=== PATIENT | male | born 1990 | race Caucasian/White ===

== ENCOUNTER 2017-03-01 14:52 | Emergency (ER) | payer SELFPAY ==
[2017-03-01] MEDS ORDERED: LACTATED RINGERS 1,000 ML IVS ONE (14:55)
[2017-03-01 15:02] VITALS: TEMP 99.2
--- NOTE | 2017-03-01 15:38 | RAD ---
EXAM DESCRIPTION: Chest,1 View CLINICAL HISTORY: 26 years Male, tachypnea COMPARISON: February 19, 2015 TECHNIQUE: AP portable chest. FINDINGS: Fair expansion of the lungs is evident without consolidation, layering effusion, or large mass. Heart size and vascularity appear normal for AP technique and degree of inspiration. No gross bony, hilar, or mediastinal abnormalities are noted. IMPRESSION: Normal chest, one view Electronically signed by: López Hancock MD 03/01/2017 3:36 PM CDT
--- NOTE | 2017-03-01 15:51 | ED.PDOC ---
History of Present Illness - General Chief Complaint: Syncope/Near Syncope Stated Complaint: hyperventilated and passed out Time Seen by Provider: 03/01/17 14:53 Source: patient, EMS notes reviewed, family Exam Limitations: no limitations - History of Present Illness Initial Comments: Nam Espitia 26 y/o male stated he just split up with his live in girlfriend of three years 5 days ago and stating having emotional problems-feels depressed and today wanting to harm himself.Stated he and her former girlfriend had a 3 year old child and had seen her with another man dining together while he was not invited.Went home got upset hyperventilated and passed out. Timing/Duration: 1-3 hours Severity: moderate Improving Factors: nothing Worsening Factors: nothing Associated Symptoms: denies symptoms Allergies/Adverse Reactions: Allergies NO KNOWN ALLERGY Allergy (Verified 07/20/15 16:59) Home Medications: Ambulatory Orders NK [NK] 03/01/17 Review of Systems - Review of Systems Constitutional: States: no symptoms reported EENTM: States: no symptoms reported Respiratory: States: no symptoms reported Cardiology: States: no symptoms reported Gastrointestinal/Abdominal: States: no symptoms reported Genitourinary: States: no symptoms reported Musculoskeletal: States: no symptoms reported Skin: States: no symptoms reported Neurological: States: emotional problems Endocrine: States: no symptoms reported Past Medical History (General) - Patient Medical History Hx Seizures: No Hx Stroke: No Hx Dementia: No Hx Asthma: No Hx of COPD: No Hx Cardiac Disorders: No Hx Congestive Heart Failure: No Hx Pacemaker: No Hx Hypertension: No Hx Thyroid Disease: No Hx Diabetes: No Hx Gastroesophageal Reflux: No Hx Renal Disease: No Hx Cancer: No Hx of HIV: No Hx Hepatitis C: No Hx MRSA: No Surgical History: no surgical history - Vaccination History Hx Tetanus, Diphtheria Vaccination: No Hx Influenza Vaccination: No Hx Pneumococcal Vaccination: No - Social History Hx Tobacco Use: No Hx Chewing Tobacco Use: Yes Hx Alcohol Use: Yes - 2x per week Hx Substance Use: Yes - marijuana Hx Substance Use Treatment: No Hx Depression: No Hx Physical Abuse: No Hx Emotional Abuse: No Hx Suspected Abuse: No - Female History Patient : No Family Medical History - Family History Mother Living Status: Still Living Hx Family Congestive Heart Failure: No Hx Family Stroke: No Hx Cardiac Disease: No Physical Exam - Physical Exam General Appearance: Alert, Anxious, No apparent distress Eye Exam: bilateral normal Ears, Nose, Throat: hearing grossly normal, normal ENT inspection, normal pharynx Neck: non-tender, full range of motion Respiratory: chest non-tender, lungs clear Cardiovascular/Chest: normal peripheral pulses, regular rate, rhythm, no murmur Peripheral Pulses: radial,right: 2+ Gastrointestinal/Abdominal: normal bowel sounds, non tender, soft Back Exam: normal inspection, no CVA tenderness Extremity: normal range of motion, non-tender, no calf tenderness Neurologic: no motor/sensory deficits, alert, depressed affect, other - mentioned wants to harm himself after incident Skin Exam: normal color Lymphatic: no adenopathy Progress - Progress Progress: 03/01/17 16:42 Vital Signs - 8 hr 03/01/17 14:57 Temperature 99.2 F Pulse Rate [ 106 H Left Brachial] Respiratory 20 Rate Blood Pressure 149/76 [Left Arm] O2 Sat by Pulse 98 Oximetry Laboratory Tests 03/01/17 15:07 WBC 6.1 RBC 4.86 Hgb 15.4 Hct 45.0 MCV 92.7 MCH 31.8 H MCHC 34.3 RDW 12.3 Plt Count 221 MPV 7.7 Absolute Neuts (auto) 5.10 Absolute Lymphs (auto) 0.60 L Absolute Monos (auto) 0.30 Absolute Eos (auto) 0.00 Absolute Basos (auto) 0.00 Neutrophils % 83.7 H Lymphocytes % 10.1 L Monocytes % 5.7 Eosinophils % 0.1 L Basophils % 0.4 PT 12.6 H INR 1.120 PTT (SP) 36.5 Sodium 139 Potassium 3.5 L Chloride 104 Carbon Dioxide 24 Anion Gap 14.5 BUN 7 Creatinine 0.99 BUN/Creatinine Ratio 7.1 L Random Glucose 114 H Serum Osmolality 276.4 Calcium 9.6 Magnesium 1.8 Total Bilirubin 1.2 H Direct Bilirubin 0.2 Indirect Bilirubin 1.0 H AST 18 ALT 34 Alkaline Phosphatase 37 L Creatine Kinase 77 CK-MB (CK-2) 1.8 CK-MB (CK-2) % Not Reportable Troponin I < 0.02 Serum Total Protein 7.2 Albumin 4.7 03/01/17 18:00 [facility] PERSONNEL CAME TO EVALUATE PATIENT - EKG/XRAY/CT EKG: Sinus, Tachy Comments: heart rate-103 XRAY: chest - no acute findings Departure - Departure Clinical Impression: Fainting spell, Anxiety hyperventilation, Situational depression, Suicidal ideations Time of Disposition: 17:58 Disposition: Discharge to Home or Self Care Condition: Fair Departure Forms: ED Discharge - Pt. Copy, Patient Portal Self Enrollment Home Medications: Ambulatory Orders NK [NK] 03/01/17 Additional Instructions: KEEP APPOINTMENT WITH [facility] 03/04/2017
[2017-03-01 18:13] VITALS: BP 143/77; O2SAT 98
== END 2017-03-01 18:13 | disposition home or self-care (01) ==
LOC: ER 14:52
DX: R55 Syncope and collapse (principal); R06.4 Hyperventilation; F43.21 Adjustment disorder with depressed mood; R45.851 Suicidal ideations; F17.220 Nicotine dependence, chewing tobacco, uncomplicated
CPT/HCPCS: 36415; 71010; 80048; 80076; 82550; 82553; 84484; 85025; 85610; 85730; 93005; J7120

== ENCOUNTER 2017-09-05 16:27 | Emergency (ER) | payer SELFPAY ==
[2017-09-05] MEDS ORDERED: LIDOCAINE 2% W/ EPINEPHRINE 20 ML VIAL INJ ONE (16:39)
[2017-09-05] MEDS ORDERED: IODOFORM 1INCH 1 EA BTTL TOP ONE (16:47)
[2017-09-05 16:57] VITALS: BP 144/85; TEMP 100.1; O2SAT 99
[2017-09-05] MEDS ORDERED: SULFA/TRIMETH 800/160 (DS) TAB 1 EA TAB PO ONE (16:59)
--- NOTE | 2017-09-05 17:03 | ED.PDOC ---
History of Present Illness - General Chief Complaint: Skin/Abrasion/Tear Stated Complaint: abscess Time Seen by Provider: 09/05/17 16:35 Source: patient Exam Limitations: no limitations - History of Present Illness Initial Comments: the patient is a 26-year-old male presenting to the emergency room secondary to abscess formation on the left side of the mons pubis. It is been present and progressive for the last 3 or 4 days. He does have a low-grade fever. No other areas of obvious infection. No previous abscesses. Timing/Duration: unsure Severity: moderate Improving Factors: nothing Worsening Factors: nothing Associated Symptoms: denies symptoms Allergies/Adverse Reactions: Allergies NO KNOWN ALLERGY Allergy (Verified 07/20/15 16:59) Home Medications: Ambulatory Orders Sulfa/Trimeth 800/160 (Ds) Tab [Bactrim DS Tab] 1 ea PO BID #14 tab 09/05/17 Review of Systems - Review of Systems Constitutional: States: fever, malaise EENTM: States: no symptoms reported Respiratory: States: no symptoms reported Cardiology: States: no symptoms reported Gastrointestinal/Abdominal: States: no symptoms reported Genitourinary: States: no symptoms reported Musculoskeletal: States: no symptoms reported Skin: States: see HPI Neurological: States: no symptoms reported Endocrine: States: no symptoms reported All other Systems: No Change from Baseline Past Medical History (General) - Patient Medical History Hx Seizures: No Hx Stroke: No Hx Dementia: No Hx Asthma: No Hx of COPD: No Hx Cardiac Disorders: No Hx Congestive Heart Failure: No Hx Pacemaker: No Hx Hypertension: No Hx Thyroid Disease: No Hx Diabetes: No Hx Gastroesophageal Reflux: No Hx Renal Disease: No Hx Cancer: No Hx of HIV: No Hx Hepatitis C: No Hx MRSA: No Surgical History: no surgical history - Vaccination History Hx Tetanus, Diphtheria Vaccination: No Hx Influenza Vaccination: No Hx Pneumococcal Vaccination: No - Social History Hx Tobacco Use: No Hx Chewing Tobacco Use: Yes Hx Alcohol Use: Yes - 2x per week Hx Substance Use: Yes - marijuana Hx Substance Use Treatment: No Hx Depression: No Hx Physical Abuse: No Hx Emotional Abuse: No Hx Suspected Abuse: No - Female History Patient : No Family Medical History - Family History Mother Living Status: Still Living Hx Family Congestive Heart Failure: No Hx Family Stroke: No Hx Cardiac Disease: No Physical Exam - Physical Exam General Appearance: Alert, Comfortable, No apparent distress Eye Exam: bilateral normal Ears, Nose, Throat: hearing grossly normal, normal pharynx Neck: full range of motion, supple Respiratory: no respiratory distress, no accessory muscle use Cardiovascular/Chest: normal peripheral pulses, no edema Peripheral Pulses: radial,right: 2+, radial,left: 2+ Gastrointestinal/Abdominal: non tender, soft Rectal Exam: other - abscess of the left side of the mons pubis Back Exam: normal inspection, no CVA tenderness Extremity: normal range of motion, non-tender, normal inspection, no pedal edema , normal capillary refill 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 Risk and benefits of I&D were explained and the patient agrees to proceed. Lidocaine with epinephrine was used 2 cc for local anesthetic and a #15 blade scalpel was used for excision of a 1 cm length for drainage. Wound was explored with a cotton-tip swab that was sterile. Approximately 10 cc of pus was obtained and iodoform gauze was used for packing. The patient can pack this daily until it heals up from the inside out. He needs to wash it daily with antibacterial soap and water. He'll be placed on Bactrim twice daily for the next 7 days. He needs to take this medication with food. A wound culture is being performed. He should follow-up with his primary care doctor early next week. ER warnings were given for any worsening. Departure - Departure Clinical Impression: Abscess of skin Qualifiers: Site of cutaneous abscess: trunk Site of cutaneous abscess of trunk: perineum Qualified Code(s): L02.215 - Cutaneous abscess of perineum Disposition: Discharge to Home or Self Care Condition: Fair Departure Forms: ED Discharge - Pt. Copy, Patient Portal Self Enrollment Instructions: DI for Incision and Drainage of a Skin Abscess Diet: regular diet Activity: increase activity as tolerated Prescriptions: Sulfa/Trimeth 800/160 (Ds) Tab [Bactrim DS Tab] 1 ea PO BID #14 tab Home Medications: Ambulatory Orders Sulfa/Trimeth 800/160 (Ds) Tab [Bactrim DS Tab] 1 ea PO BID #14 tab 09/05/17 Additional Instructions: the patient's 26-year-old male presenting to the emergency room secondary to an abscess to the left side of the mons pubis. Risk and benefits of I&D were explained and the patient agrees to proceed. Lidocaine with epinephrine was used 2 cc for local anesthetic and a #15 blade scalpel was used for excision of a 1 cm length for drainage. Wound was explored with a cotton-tip swab that was sterile. Approximately 10 cc of pus was obtained and iodoform gauze was used for packing. The patient can pack this daily until it heals up from the inside out. He needs to wash it daily with antibacterial soap and water. He'll be placed on Bactrim twice daily for the next 7 days. He needs to take this medication with food. A wound culture is being performed. He should follow-up with his primary care doctor early next week. ER warnings were given for any worsening.
== END 2017-09-05 17:30 | disposition home or self-care (01) ==
LOC: ER 16:27
DX: L02.215 Cutaneous abscess of perineum (principal)

== ENCOUNTER 2018-01-07 17:41 | Emergency (ER) | payer SELFPAY ==
[2018-01-07] MEDS ORDERED: ONDANSETRON INJ 4 MG/2 ML VIAL IV ONE (18:09)
[2018-01-07] MEDS ORDERED: SODIUM CHLORIDE 0.9% 1000ML 1,000 ML IVS PRN (18:09)
--- NOTE | 2018-01-07 18:24 | ED.PDOC ---
History of Present Illness - General Chief Complaint: GI Problem Stated Complaint: vomiting and diarrhea Time Seen by Provider: 01/07/18 18:07 Information Source: patient - History of Present Illness Initial Comments: STARTED AT 0800 HRS TODAY MULTIPLE EPISODES OF VOMITING AND DIARRHEA ASSOCIATED WITH ABDOMINAL CRAMPS. THEY HAVE A DAUGHTER THAT RECENTLY HAD GASTROENTERITIS. DENIES ANY FEVER. Abdominal Pain Onset Location: generalized abdomen Pain Radiation: no radiation Quality: mild, cramping, intermittent Improving Factors: nothing Worsening Factors: nothing Associated Symptoms: diarrhea, fatigue, nausea/vomiting, weakness Review of Systems - Review of Systems Constitutional: States: no symptoms reported EENTM: States: no symptoms reported Respiratory: States: no symptoms reported Cardiology: States: no symptoms reported Gastrointestinal/Abdominal: States: abdominal pain, diarrhea, nausea, vomiting Genitourinary: States: no symptoms reported Musculoskeletal: States: no symptoms reported Skin: States: no symptoms reported Neurological: States: no symptoms reported Endocrine: States: no symptoms reported Hematologic/Lymphatic: States: no symptoms reported Past Medical History (General) - Patient Medical History Hx Seizures: No Hx Stroke: No Hx Dementia: No Hx Asthma: No Hx of COPD: No Hx Cardiac Disorders: No Hx Congestive Heart Failure: No Hx Pacemaker: No Hx Hypertension: No Hx Thyroid Disease: No Hx Diabetes: No Hx Gastroesophageal Reflux: No Hx Renal Disease: No Hx Cancer: No Hx of HIV: No Hx Hepatitis C: No Hx MRSA: No Surgical History: no surgical history - Vaccination History Hx Tetanus, Diphtheria Vaccination: No Hx Influenza Vaccination: No Hx Pneumococcal Vaccination: No - Social History Hx Tobacco Use: No Hx Chewing Tobacco Use: Yes Hx Alcohol Use: No Hx Substance Use: No Hx Substance Use Treatment: No Hx Depression: No Hx Physical Abuse: No Hx Emotional Abuse: No Hx Suspected Abuse: No - Female History Patient : No Family Medical History - Family History Mother Living Status: Still Living Hx Family Congestive Heart Failure: No Hx Family Stroke: No Hx Cardiac Disease: No Physical Exam - Physical Exam General Appearance: Alert, No apparent distress, Well Developed, Well Groomed, Well Hydrated, Well Nourished Eyes, Ears, Nose, Throat Exam: PERRL/EOMI, normal ENT inspection Neck: non-tender, full range of motion, supple Respiratory: chest non-tender, lungs clear, normal breath sounds Cardiovascular/Chest: normal peripheral pulses, regular rate, rhythm, no edema, no gallop Gastrointestinal/Abdominal: normal bowel sounds, non tender, soft, no organomegaly, no pulsatile mass Rectal Exam: deferred Back Exam: normal inspection Extremity: normal range of motion Neurologic: no motor/sensory deficits, alert, oriented x 3 Skin Exam: normal color Lymphatic: no adenopathy Progress - Results/Orders Results/Orders: THE TRANSAMINASES WERE SLIGHTLY ELEVATED. THE PATIENT FEELS MUCH BETTER. HE HAS NO FAMILY DOCTOR BUT I AM REQUESTING HE FOLLOW WITH A PCP AND HAVE HIS LIVER ENZYMES RECHECKED. Departure - Departure Clinical Impression: Gastroenteritis Time of Disposition: 19:39 Disposition: Discharge to Home or Self Care Condition: Good Departure Forms: ED Discharge - Pt. Copy, Patient Portal Self Enrollment Instructions: Viral Gastroenteritis Diet: full liquid diet Prescriptions: Ondansetron [Zofran Odt] 4 mg PO Q6HRS #6 tab Home Medications: Ambulatory Orders Sulfa/Trimeth 800/160 (Ds) Tab [Bactrim DS Tab] 1 ea PO BID #14 tab 09/05/17 Ondansetron [Zofran Odt] 4 mg PO Q6HRS #6 tab 01/07/18
[2018-01-07] MEDS ORDERED: DICYCLOMINE HCL INJ 20 MG/2 ML AMP IM ONE (18:25)
[2018-01-07 19:34] VITALS: BP 126/61; O2SAT 98
[2018-01-07 19:56] VITALS: TEMP 99.7
== END 2018-01-07 19:55 | disposition home or self-care (01) ==
LOC: ER 17:41
DX: K52.9 Noninfective gastroenteritis and colitis, unspecified (principal); Z87.891 Personal history of nicotine dependence
CPT/HCPCS: 80053; 81001; 85025; J0500; J2405; J7030

== ENCOUNTER 2019-01-19 21:31 | Emergency (ER) | payer SELFPAY ==
--- NOTE | 2019-01-19 21:56 | ED.PDOC ---
History of Present Illness - General Chief Complaint: GI Problem Stated Complaint: Nause, vomiting with headache Time Seen by Provider: 01/19/19 21:53 Source: patient Exam Limitations: no limitations Additional Information: 28 YEAR OLD PRESENTS WITH HEADACHE FEVER VOMITING AND SOME LOOSE STOOLS SINCE 4 AM TODAY HE HAS NO NECK STIFFNESS NO SKIN RASH NO SORE THROAT NO PHOTOPHOBIA PHYSICAL AWAKE ALERT NOT TOXIC NO MENINGEAL SIGNS TONGUE IS COATED PHARYNX RED INFLAMED LUNGS CLEAR TO AUSCULTATION ABDOMEN SOFT NON TENDER SKIN NO RASH NO CVA TENDERNESS - History of Present Illness Timing/Duration: constant, changing over time Severity: moderate Improving Factors: nothing Associated Symptoms: nausea/vomiting Allergies/Adverse Reactions: Allergies NO KNOWN ALLERGY Allergy (Verified 01/07/18 17:53) Review of Systems - Review of Systems Constitutional: States: fever EENTM: States: no symptoms reported Respiratory: States: no symptoms reported Cardiology: States: no symptoms reported Gastrointestinal/Abdominal: States: see HPI Genitourinary: States: no symptoms reported Musculoskeletal: States: no symptoms reported Skin: States: no symptoms reported Neurological: States: no symptoms reported Endocrine: States: no symptoms reported Hematologic/Lymphatic: States: no symptoms reported Past Medical History (General) - Patient Medical History Hx Seizures: No Hx Stroke: No Hx Dementia: No Hx Asthma: No Hx of COPD: No Hx Cardiac Disorders: No Hx Congestive Heart Failure: No Hx Pacemaker: No Hx Hypertension: No Hx Thyroid Disease: No Hx Diabetes: No Hx Gastroesophageal Reflux: No Hx Renal Disease: No Hx Cancer: No Hx of HIV: No Hx Hepatitis C: No Hx MRSA: No Surgical History: no surgical history - Vaccination History Hx Tetanus, Diphtheria Vaccination: No Hx Influenza Vaccination: No Hx Pneumococcal Vaccination: No Immunizations Up to Date: No - Social History Hx Tobacco Use: No Hx Chewing Tobacco Use: Yes Hx Alcohol Use: Yes Hx Substance Use: No Hx Substance Use Treatment: No Hx Depression: No Hx Physical Abuse: No Hx Emotional Abuse: No Hx Suspected Abuse: No - Female History Patient : No Family Medical History - Family History Mother Living Status: Still Living Hx Family Congestive Heart Failure: No Hx Family Stroke: No Hx Cardiac Disease: No Physical Exam - Physical Exam General Appearance: Alert, Comfortable Ears, Nose, Throat: hearing grossly normal, normal ENT inspection, pharyngeal erythema Neck: non-tender, full range of motion, supple, normal inspection Respiratory: chest non-tender, lungs clear, normal breath sounds, no respiratory distress Cardiovascular/Chest: normal peripheral pulses, regular rate, rhythm, no edema, no gallop, no JVD, no murmur Gastrointestinal/Abdominal: normal bowel sounds, non tender, soft, no organomegaly, no pulsatile mass Neurologic: title i instructional assistant II-XII nml as tested, no motor/sensory deficits, alert, normal mood/affect, oriented x 3 Progress - Results/Orders Results/Orders: Laboratory Tests 01/19/19 01/19/19 01/19/19 21:53 22:00 22:00 WBC 10.6 RBC 5.12 Hgb 16.5 Hct 48.0 MCV 93.7 MCH 32.3 H MCHC 34.5 RDW 13.0 Plt Count 162 MPV 8.6 Absolute Neuts (auto) 9.60 H Absolute Lymphs (auto) 0.40 L Absolute Monos (auto) 0.70 Absolute Eos (auto) 0.00 Absolute Basos (auto) 0.00 Neutrophils % 90.0 H Lymphocytes % 3.6 L Monocytes % 6.2 Eosinophils % 0.0 L Basophils % 0.2 Sodium 135 Potassium 3.2 L Chloride 100 L Carbon Dioxide 25 Anion Gap 13.2 BUN 10 Creatinine 0.89 BUN/Creatinine Ratio 11.2 Random Glucose 110 H Serum Osmolality 269.8 L Calcium 9.3 Group A Strep Rapid Negative Departure - Departure Clinical Impression: Viral illness Time of Disposition: 23:04 Disposition: Discharge to Home or Self Care Condition: Good Departure Forms: ED Discharge - Pt. Copy, Patient Portal Self Enrollment Diet: resume usual diet
[2019-01-19] MEDS ORDERED: ONDANSETRON INJ 4 MG/2 ML VIAL IV ONE (21:57)
[2019-01-19] MEDS ORDERED: SODIUM CHLORIDE 0.9% 1000ML 1,000 ML IVS ONE (21:57)
[2019-01-19] MEDS ORDERED: KETOROLAC TROMETHAMINE INJ 30 MG/ML VIAL IV ONE (21:57)
[2019-01-19 23:21] VITALS: BP 133/82; TEMP 99.6; O2SAT 98
== END 2019-01-19 23:24 | disposition home or self-care (01) ==
LOC: ER 21:31
DX: B34.9 Viral infection, unspecified (principal); R11.2 Nausea with vomiting, unspecified; Z87.891 Personal history of nicotine dependence
CPT/HCPCS: 36415; 80048; 85025; 87070; 87880; J1885; J2405; J7030

== ENCOUNTER 2020-07-29 20:25 | Emergency (ER) | payer SELFPAY ==
--- NOTE | 2020-07-29 20:30 | ED.PDOC ---
History of Present Illness - General Time Seen by Provider: 07/29/20 20:28 Source: patient - History of Present Illness Initial Comments: 29-year-old male who presents with chief complaint of fever and diarrhea. Reports onset of illness about 1 week ago with gradual worsening. Reports worsening shortness of breath as well, now rates as 5/10 severity at rest, worse with exertion. Reports he has been having diarrhea for the past 2 to 3 days with 6-7 episodes of watery diarrhea per day. Seems to have improved some today. Reports also headache, body aches, loss of taste and smell today. Also with intermittent nonproductive cough. He has not been taking any medicine at home for the symptoms. His mother recently tested positive for COVID-19. Patient is concerned because he works at a [employer] and wanted to get tested. Allergies/Adverse Reactions: Allergies NO KNOWN ALLERGY Allergy (Verified 01/07/18 17:53) Home Medications: Ambulatory Orders Promethazine Tab [Phenergan Tablet] 25 mg PO .Q4H #14 tab 01/19/19 Review of Systems - Review of Systems Review of Systems: 07/29/20 20:57 as per HPI All other Systems: Reviewed and Negative Past Medical History (General) - Patient Medical History Hx Seizures: No Hx Stroke: No Hx Dementia: No Hx Asthma: No Hx of COPD: No Hx Cardiac Disorders: No Hx Congestive Heart Failure: No Hx Pacemaker: No Hx Hypertension: No Hx Thyroid Disease: No Hx Diabetes: No Hx Gastroesophageal Reflux: No Hx Renal Disease: No Hx Cancer: No Hx of HIV: No Hx Hepatitis C: No Hx MRSA: No - Vaccination History Hx Tetanus, Diphtheria Vaccination: No Hx Influenza Vaccination: No Hx Pneumococcal Vaccination: No - Social History Hx Tobacco Use: No Hx Chewing Tobacco Use: Yes Hx Alcohol Use: Yes Hx Substance Use: No Hx Substance Use Treatment: No Hx Depression: No Hx Physical Abuse: No Hx Emotional Abuse: No Hx Suspected Abuse: No - Female History Patient : No Family Medical History - Family History Mother Living Status: Still Living Hx Family Congestive Heart Failure: No Hx Family Stroke: No Hx Cardiac Disease: No Physical Exam - Physical Exam General Appearance: Alert, Comfortable, No apparent distress Eye Exam: bilateral normal Ears, Nose, Throat: hearing grossly normal, normal ENT inspection, normal pharynx Neck: non-tender, full range of motion, supple, normal inspection Respiratory: chest non-tender, lungs clear, normal breath sounds, no respiratory distress, no accessory muscle use Cardiovascular/Chest: normal peripheral pulses, regular rate, rhythm, no edema, no gallop, no JVD, no murmur Peripheral Pulses: radial,right: 2+, radial,left: 2+ Gastrointestinal/Abdominal: non tender, soft Back Exam: normal inspection Extremity: normal range of motion, non-tender, normal inspection, no pedal edema, no calf tenderness, normal capillary refill 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 Consider also other viral etiologies, flu, gastroenteritis, upper respiratory infection, other -Patient stable in the ED with normal vitals. SPO2 98% on room air. Patient is in no respiratory distress and has clear breath sounds throughout. No other red flag symptoms apparent. Patient appears well-hydrated -Respiratory panel collected and will call patient with results. Discussed very likely diagnosis of COVID-19 as well as continued supportive care and quarantine measures at home. Discussed also that all household members will additionally need to quarantine for 2 weeks. Work note provided. Discharged home in good condition, return warnings discussed. 07/30/20 06:09 -RVP did reveal COVID-19 positive, all other pathogens negative. Strep testing is also positive. Will have RN notify the patient and call in Abx Rx. Petey Briones MD Billing #[id number] Laboratory Results - last 24 hr 07/29/20 20:51 Group A Strep Rapid Positive H Departure - Departure Clinical Impression: COVID-19, Gastroenteritis Time of Disposition: 20:52 Disposition: Discharge to Home or Self Care Condition: Good Departure Forms: ED Discharge - Work Release Instructions: Viral Gastroenteritis, Adult (DC), Coronavirus Disease 2019 (COVID-19) (DC) Diet: resume usual diet Activity: increase activity as tolerated Home Medications: Ambulatory Orders Promethazine Tab [Phenergan Tablet] 25 mg PO .Q4H #14 tab 01/19/19 Additional Instructions: Remain well-hydrated and gradually advance diet and activity level as tolerated. You may take [id number] medications as needed for pain and fever such as ibuprofen 600 mg every 6 hours as needed and Tylenol 650 mg every 6 hours as needed. Return the ED if you develop new or concerning symptoms such as large volume or frequent diarrhea (more than 10 episodes per day), bloody diarrhea or vomiting, shortness of breath or trouble breathing, chest pain, etc. You will need to quarantine for minimum of 14 days and the without fever cough for at least 3 days prior to returning to work. Everyone in the household will need to additionally quarantine for a minimum of 14 days as well. You may follow-up with your primary care doctor in the next 1 to 2 weeks for repeat evaluation or sooner as needed.
[2020-07-29 21:10] VITALS: BP 110/79; TEMP 98.7; O2SAT 97
== END 2020-07-29 21:05 | disposition home or self-care (01) ==
LOC: ER 20:25
DX: U07.1 COVID-19 (principal); A08.39 Other viral enteritis